=== PATIENT | male | born 1995 | race Caucasian/White ===

== ENCOUNTER 2017-08-19 15:50 | Outpatient (CLI) ==
[2015-10-06 21:52] VITALS: BMI 18.8
== END 2017-08-19 15:51 | disposition left against medical advice (07) ==
LOC: AMBL 15:50
PROVIDERS: ATTEND Internal Medicine
DX: S51.811A Laceration without foreign body of right forearm, initial encounter (principal); S30.811A Abrasion of abdominal wall, initial encounter; V28.4XXA Motorcycle driver injured in noncollision transport accident in traffic accident, initial encounter